=== PATIENT | male | born 1950 | race Caucasian/White ===

== ENCOUNTER → 2018-03-01 | Outpatient (CLI) | payer OTHER ==
[~2018-03-01] VITALS: Ht 175.3 cm; Wt 96.2 kg
[~2018-03-01] MED LIST: NORMAL SALINE IV ONE; SINCALIDE IV ONE
--- NOTE | 2018-03-01 11:09 | RAD ---
Exam performed: Nuclear medicine hepatobiliary scan. History: Bloating, vomiting Following intravenous administration of 5.5 mCi of Choletec tagged with Tc, sequential gamma camera images of the right upper quadrant of the abdomen were obtained. There is prompt accumulation of radionuclide in the liver which appears to be unremarkable Prompt accumulation in the central intrahepatic biliary radicals, gallbladder, common bile duct and small bowel is noted. Patient was also infused with 1.92mcg of CCK and gallbladder ejection fraction was calculated which measures 29.5 %. Impression: 1. Decrease gallbladder ejection fraction likely chronic cholecystitis or biliary dyskinesia. Electronically signed by: Silverio Arias MD (03/01/2018 11:05 AM) [facility]
== END | disposition home or self-care (01) ==
LOC: NM 07:46
PROVIDERS: ATTEND Surgery
DX: R14.0 Abdominal distension (gaseous) (principal); R11.10 Vomiting, unspecified
CPT/HCPCS: 78226; 96374; 96375; A9537; J2805